=== PATIENT | female | born 1965 | race African-American/Black ===

== ENCOUNTER 2018-09-01 06:23 | Emergency (ER) | payer SELFPAY ==
[~2018-09-01] VITALS: Ht 149.9 cm; Wt 86.6 kg
[2018-09-01 06:33] VITALS: BP 143/76; Ht 149.9 cm; Wt 86.6 kg
== END 2018-09-01 07:23 | disposition home or self-care (01) ==
LOC: ED 06:23
DX: J40 Bronchitis, not specified as acute or chronic (principal); M54.9 Dorsalgia, unspecified; Z88.8 Allergy status to other drugs, medicaments and biological substances